=== PATIENT | male | born 1980 | race Caucasian/White ===

== ENCOUNTER 2017-02-08 16:02 | Emergency (ER) | payer SELFPAY ==
[2017-02-08 16:14] VITALS: BP 132/86
--- NOTE | 2017-02-08 17:10 | EDM.PDOC ---
ED HPI GENERAL MEDICAL PROBLEM - General Chief Complaint: General Stated Complaint: CAME IN CONTACT WITH RAT URINE/SOB Time Seen by Provider: 02/08/17 16:59 Source of Information: Reports: Patient History Limitations: Reports: No limitations - History of Present Illness INITIAL COMMENTS - FREE TEXT/NARRATIVE: Patient presents for evaluation and treatment of a sore throat, headaches and diarrhea. Patient reports that he's had symptoms for last 2 or 3 days. Current symptoms include a nonproductive cough, sore throat, headache, body aches, stomach pain, diarrhea and nausea. He states he's had 3 episodes of diarrhea today. Has not noticed blood in his stool. Patient describes his throat discomfort as a scratchy feeling or "fluid in his throat " Patient denies any fevers, vomiting, ear aches or pains, sinus pain or pressure or any urinary symptoms. Patient reports this past weekend he was cleaning out the RV. States that he was vacuuming with a shop vac and some dust was blowing in his face. he was vacuuming up rat and mice urine and feces. He states that he was googling his symptoms and his quite concerned he is hantavirus. Patient denies any recent travel. Patient denies any contacts. Patient smokes about half-pack to pack a day. Throat Pain Score (Numeric/FACES): 7 - Related Data Allergies Allergy/AdvReac Type Severity Reaction Status Date / Time No Known Allergies Allergy Verified 02/08/17 16:14 Home Meds: Home Meds . [No Known Home Meds] 02/08/17 [History] Past Medical History - Past Health History Medical/Surgical History: Denies Medical/Surgical History Social & Family History - Tobacco Use Smoking Status *Q: Current Every Day Smoker Years of Tobacco use: 10 Packs/Tins Daily: 1 - Caffeine Use Caffeine Use: Reports: Coffee, Soda - Recreational Drug Use Recreational Drug Use: No ED ROS GENERAL - Review of Systems Review Of Systems: See Below Constitutional: Reports: other (body aches). Denies: fever HEENT: Reports: Throat pain. Denies: Ear pain Respiratory: Reports: Shortness of Breath GI/Abdominal: Reports: Abdominal pain, Diarrhea (3 episodes of loose stool today ), Nausea. Denies: Hematochezia, Melena, Vomiting Neurological: Reports: Headache ED EXAM, GENERAL - Physical Exam Exam: See Below Exam Limited By: No limitations General Appearance: alert, WD/WN, no apparent distress Ears: normal external exam, normal canal, hearing grossly normal, normal TMs Nose: normal inspection Throat/Mouth: Normal inspection, Normal lips, Normal voice, No airway compromise Neck: normal inspection Respiratory/Chest: no respiratory distress, lungs clear, normal breath sounds Cardiovascular: normal peripheral pulses, regular rate, rhythm, no murmur GI/Abdominal: normal bowel sounds, soft, non tender Neurological: alert, oriented, normal cognition Psychiatric: normal affect, normal mood Skin Exam: Warm, Dry, Normal color Course - Vital Signs Last Recorded V/S: Last Vital Signs Temp 37.0 C 02/08/17 16:09 Pulse 89 02/08/17 16:09 Resp 16 02/08/17 16:09 BP 132/86 02/08/17 16:09 Pulse Ox 100 02/08/17 16:09 - Orders/Labs/Meds Orders: Active Orders 24 hr Category Date Time Status Chest 2V [CR] Stat Exams 02/08/17 16:59 Taken Labs: Laboratory Tests 02/08/17 02/08/17 Range/Units 16:59 16:59 WBC 10.77 H (4.23-9.07) K/mm3 RBC 4.74 (4.63-6.08) M/mm3 Hgb 15.5 (13.7-17.5) gm/L Hct 45.2 (40.1-51.0) % MCV 95.4 H (79.0-92.2) fl MCH 32.7 H (25.7-32.2) pg MCHC 34.3 (32.2-35.5) g/dl RDW Std Deviation 43.2 (35.1-43.9) fL Plt Count 261 (163-337) K/mm3 MPV 10.0 (9.4-12.3) fl Neut % (Auto) 49.5 (34.0-67.9) % Lymph % (Auto) 38.1 (21.8-53.1) % Phillips % (Auto) 9.9 (5.3-12.2) % Eos % (Auto) 1.9 (0.8-7.0) Baso % (Auto) 0.3 (0.1-1.2) % Neut # (Auto) 5.33 (1.78-5.38) K/mm3 Lymph # (Auto) 4.10 H (1.32-3.57) K/mm3 Phillips # (Auto) 1.07 H (0.30-0.82) K/mm3 Eos # (Auto) 0.21 (0.04-0.54) K/mm3 Baso # (Auto) 0.03 (0.01-0.08) K/mm3 Sodium 140 (136-145) mEq/L Potassium 3.9 (3.5-5.1) mEq/L Chloride 103 (98-107) mEq/L Carbon Dioxide 26 (21-32) mEq/L Anion Gap 14.9 (5-15) BUN 23 H (7-18) mg/dL Creatinine 1.0 (0.7-1.3) mg/dL Est Cr Clr Drug Dosing 86.81 mL/min Estimated GFR (MDRD) > 60 (>60) mL/min BUN/Creatinine Ratio 23.0 H (14-18) Glucose 102 (74-106) mg/dL Calcium 9.1 (8.5-10.1) mg/dL Total Bilirubin 1.0 (0.2-1.0) mg/dL AST 19 (15-37) U/L ALT 21 (16-63) U/L Alkaline Phosphatase 112 (46-116) U/L C-Reactive Protein < 0.2 (<1.0) mg/dL Total Protein 7.3 (6.4-8.2) g/dl Albumin 3.9 (3.4-5.0) g/dl Globulin 3.4 gm/dL Albumin/Globulin Ratio 1.2 (1-2) - Radiology Interpretation Free Text/Narrative:: Chest xray shows no acute intrathoracic process. - Re-Assessments/Exams Free Text/Narrative Re-Assessment/Exam: 02/08/17 19:03 Labs have returned. White blood cell count is mildly elevated 10.77, hgb is 15.5 and platelets are 261. Sodium is 140, potassium 3.9 chloride is 103. Anion gap is 14.9. Glucose is 102. AST is 19, ALT is 21 and alkaline phosphatase is 112. CRP is normal less than 0.2. I reviewed the lab and chest x-ray results with the patient. It is unlikely that he has hanta virus, however, it is possible that he is still in a incubation period. He is not showing any signs of hantavirus such as having elevated liver enzymes or thrombocytopenia. I Feel that it is unlikely he has hantavirus and more likely he has a common virus causing a viral pharyngitis. I encouraged him to continue to monitor his symptoms and return should his symptoms change or worsen. There is medication for hantavirus only symptomatic treatment so no antibiotics are indicated. Will discharge home. Discharge instructions as documented. Departure - Departure Time of Disposition: 19:19 Disposition: Home, Self-Care 01 Condition: good Clinical Impression: Pharyngitis Referrals: PCP,None [Primary Care Provider] - Forms: ED Department Discharge Additional Instructions: Monitor your symptoms. Please return to the ER should your symptoms change or worsen. - My Orders Last 24 Hours: My Active Orders 02/08/17 16:59 Chest 2V [CR] Stat - Assessment/Plan Last 24 Hours: My Active Orders 02/08/17 16:59 Chest 2V [CR] Stat
--- NOTE | 2017-02-09 11:45 | CR ---
Chest: Two views of the chest were obtained. Comparison: No previous study. Heart size and mediastinum are normal. Lungs are clear. Bony structures are unremarkable. Impression: 1. Nothing acute is identified on two-view chest x-ray. Diagnostic code #1
== END 2017-02-08 19:20 | disposition home or self-care (01) ==
LOC: JD.ED 16:02
DX: J02.9 Acute pharyngitis, unspecified (principal); F17.210 Nicotine dependence, cigarettes, uncomplicated
CPT/HCPCS: 36415; 71020; 71020-26; 80053; 85025; 86140; 99282; 99285

== ENCOUNTER 2018-06-13 07:01 | Emergency (ER) | payer SELFPAY ==
[2018-06-13 07:14] VITALS: BP 120/82
[2018-06-13] MEDS ORDERED: Sodium Chloride 0.9% 1,000 ML IV SCH (07:30)
[2018-06-13] MEDS ORDERED: Sodium Chloride 0.9% 10 ML Syringe FLUSH PRN (07:31)
--- NOTE | 2018-06-13 07:57 | EDM.PDOC ---
ED HPI GENERAL MEDICAL PROBLEM - General Chief Complaint: Abdominal Pain Stated Complaint: DIARRHEA X 15 DAYS Time Seen by Provider: 06/13/18 07:21 Source of Information: Reports: Patient, RN Notes Reviewed - History of Present Illness INITIAL COMMENTS - FREE TEXT/NARRATIVE: 38-year-old male comes in with concerns about diarrhea that started over 2 weeks ago, not going away. He states just drinking coffee this morning triggered about 7 episodes of watery diarrhea. Eating is worse with diarrhea very quickly after even trying to eat small amounts of food. Occasional mild abdominal cramping but no major abdominal pain. No vomiting. No fever or chills. No one else at home has been ill. He also is concerned about right low back pain that is been off and on for many months but now becoming more persistent worse with motion. Not radiates down the leg. He does do a lot of lifting with his work. Family wants me to look at his foot and ankle also. He twisted his right ankle about 4 days ago with pain swelling lateral aspect of foot and ankle. Right Lower Back Pain Score (Numeric/FACES): 9 - Related Data Allergies Allergy/AdvReac Type Severity Reaction Status Date / Time No Known Allergies Allergy Verified 02/08/17 16:14 Home Meds: Home Meds Ciprofloxacin HCl [Cipro] 500 mg PO Q12HR #10 tablet 06/13/18 [Rx] Past Medical History - Past Health History Medical/Surgical History: Denies Medical/Surgical History Gastrointestinal History: Reports: GERD - Past Surgical History Other Male Surgeries/Procedures: hypospadis at Social & Family History - Tobacco Use Smoking Status *Q: Current Every Day Smoker Years of Tobacco use: 18 Packs/Tins Daily: 0.5 Used Tobacco, but Quit: No - Caffeine Use Caffeine Use: Reports: Coffee, Soda, Tea - Recreational Drug Use Recreational Drug Use: No ED ROS GENERAL - Review of Systems Review Of Systems: See Below Constitutional: Denies: Fever, Chills, Diaphoresis HEENT: Denies: Throat Pain Respiratory: Denies: Shortness of Breath Cardiovascular: Denies: Chest Pain GI/Abdominal: Reports: Abdominal Pain (Occasional generalized cramps), Diarrhea , Nausea. Denies: Hematochezia (Frequent watery), Vomiting (Occasional, gone) : Reports: No Symptoms Musculoskeletal: Reports: Back Pain. Denies: Leg Pain (Right low back), Foot Pain, Joint Pain Skin: Reports: No Symptoms Neurological: Reports: No Symptoms ED EXAM, GI/ABD - Physical Exam Exam: See Below General Appearance: Alert, No Apparent Distress Eyes: Bilateral: Normal Appearance Throat/Mouth: Normal Inspection Head: Atraumatic. No: Facial Swelling Neck: Supple, Full Range of Motion Respiratory/Chest: No Respiratory Distress, Lungs Clear, Normal Breath Sounds GI/Abdominal Exam: Soft, Non-Tender. No: Guarding, Rebound Back Exam: CVA Tenderness (R) (Mild), Other (Minimal tenderness right low back, back otherwise nontender). No: CVA Tenderness (L) Extremities: Joint Swelling (There is very mild swelling below the lateral ankle mild to moderate tenderness proximal fifth metatarsal area of right foot. Slight bruising present.) Neurological: Alert, Oriented, No Motor/Sensory Deficits Skin Exam: Warm, Dry, Normal Color Course - Vital Signs Last Recorded V/S: Last Vital Signs Temp 98.4 F 06/13/18 07:08 Pulse 78 06/13/18 07:08 Resp 20 06/13/18 07:08 BP 120/82 06/13/18 07:08 Pulse Ox 99 06/13/18 07:08 - Orders/Labs/Meds Orders: Active Orders 24 hr Category Date Time Status Peripheral IV Care [RC] . DIRECTED Care 06/13/18 07:31 Active CULTURE STOOL + SHIGATOX [RM] Stat Lab 06/13/18 08:58 Ordered Sodium Chloride 0.9% [Normal Saline] 1,000 ml Med 06/13/18 07:30 Active IV ONETIME Sodium Chloride 0.9% [Saline Flush] Med 06/13/18 07:31 Active 10 ml FLUSH ASDIRECTED PRN Peripheral IV Insertion Adult [OM.PC] Stat Oth 06/13/18 07:30 Ordered Medication Orders Sodium Chloride (Normal Saline) 1,000 mls @ 999 mls/hr IV ONETIME [facility] Last Admin: 06/13/18 07:45 Dose: 999 mls/hr Sodium Chloride (Saline Flush) 10 ml FLUSH ASDIRECTED PRN PRN Reason: Keep Vein Open Last Admin: 06/13/18 07:40 Dose: 10 ml Labs: Laboratory Tests 06/13/18 06/13/18 06/13/18 Range/Units 07:40 07:40 09:20 WBC 7.79 (4.23-9.07) K/mm3 RBC 5.06 (4.63-6.08) M/mm3 Hgb 16.6 (13.7-17.5) gm/L Hct 47.3 (40.1-51.0) % MCV 93.5 H (79.0-92.2) fl MCH 32.8 H (25.7-32.2) pg MCHC 35.1 (32.2-35.5) g/dl RDW Std Deviation 42.7 (35.1-43.9) fL Plt Count 282 (163-337) K/mm3 MPV 10.0 (9.4-12.3) fl Neut % (Auto) 47.1 (34.0-67.9) % Lymph % (Auto) 36.3 (21.8-53.1) % [place] % (Auto) 11.9 (5.3-12.2) % Eos % (Auto) 3.6 (0.8-7.0) Baso % (Auto) 0.8 (0.1-1.2) % Neut # (Auto) 3.67 (1.78-5.38) K/mm3 Lymph # (Auto) 2.83 (1.32-3.57) K/mm3 [place] # (Auto) 0.93 H (0.30-0.82) K/mm3 Eos # (Auto) 0.28 (0.04-0.54) K/mm3 Baso # (Auto) 0.06 (0.01-0.08) K/mm3 Sodium 138 (136-145) mEq/L Potassium 4.2 (3.5-5.1) mEq/L Chloride 104 (98-107) mEq/L Carbon Dioxide 22 (21-32) mEq/L Anion Gap 16.2 H (5-15) BUN 16 (7-18) mg/dL Creatinine 0.9 (0.7-1.3) mg/dL Est Cr Clr Drug Dosing 101.92 mL/min Estimated GFR (MDRD) > 60 (>60) mL/min BUN/Creatinine Ratio 17.8 (14-18) Glucose 98 (74-106) mg/dL Calcium 8.8 (8.5-10.1) mg/dL Total Bilirubin 1.3 H (0.2-1.0) mg/dL AST 21 (15-37) U/L ALT 21 (16-63) U/L Alkaline Phosphatase 102 (46-116) U/L Total Protein 7.8 (6.4-8.2) g/dl Albumin 4.3 (3.4-5.0) g/dl Globulin 3.5 gm/dL Albumin/Globulin Ratio 1.2 (1-2) Urine Color Yellow (Yellow) Urine Appearance Clear (Clear) Urine pH 6.0 (5.0-8.0) Ur Specific Bradshaw 1.020 (1.005-1.030) Urine Protein Negative (Negative) Urine Glucose (UA) Negative (Negative) Urine Ketones Negative (Negative) Urine Occult Blood Negative (Negative) Urine Nitrite Negative (Negative) Urine Bilirubin Negative (Negative) Urine Urobilinogen 0.2 (0.2-1.0) Ur Leukocyte Esterase Negative (Negative) Urine RBC Not seen (0-5) /hpf Urine WBC 0-5 (0-5) /hpf Ur Epithelial Cells Not seen (0-5) /hpf Urine Bacteria Not seen (FEW) /hpf Urine Mucus Few (FEW) /hpf Meds: Medications Generic Name Dose Route Start Last Admin Trade Name Freq PRN Reason Stop Dose Admin Sodium Chloride 1,000 mls @ 999 mls/hr 06/13/18 07:30 06/13/18 07:45 Normal Saline IV 999 mls/hr ONETIME [facility] Administration Sodium Chloride 10 ml 06/13/18 07:31 06/13/18 07:40 Saline Flush FLUSH 10 ml ASDIRECTED PRN Administration Keep Vein Open - Re-Assessments/Exams Free Text/Narrative Re-Assessment/Exam: 06/13/18 11:11 X-rays of the foot are negative for fracture, labs are relatively good. UA was normal. He did provider stool sample for culture. Due to severity of diarrhea and not getting better I am going to start him on a course of Cipro 500 mg twice daily for 5 days. Probiotic 2-3 times daily. Discharge instructions as documented. Departure - Departure Time of Disposition: 10:34 Disposition: Home, Self-Care 01 Condition: Fair Clinical Impression: Diarrhea Qualifiers: Diarrhea type: presumed infectious Qualified Code(s): R19.7 - Diarrhea, unspecified Back pain Qualifiers: Back pain location: low back pain Chronicity: acute Back pain laterality: right Sciatica presence: without sciatica Qualified Code(s): M54.5 - Low back pain - Discharge Information Prescriptions: Ciprofloxacin HCl [Cipro] 500 mg PO Q12HR #10 tablet Instructions: Back Pain, Adult, [id number], Diarrhea, Adult, [id number] Referrals: PCP,None [Primary Care Provider] - Forms: ED Department Discharge Additional Instructions: Clear liquids today, then very bland diet as tolerated as discussed, probiotic 2 -3 times daily for at least 1 week, Cipro antibiotic 500 mg twice daily for 5 days. Follow-up clinic if not much better within 3-5 days as expected. Call [phone] for appointment. Alternate ice and heat to low back as needed. You may take tylenol or ibuprofen up to 3 times daily or even alternate Tylenol and ibuprofen for severe back pain as needed. - My Orders Last 24 Hours: My Active Orders 06/13/18 07:30 Sodium Chloride 0.9% [Normal Saline] 1,000 ml IV ONETIME Peripheral IV Insertion Adult [OM.PC] Stat 06/13/18 07:31 Peripheral IV Care [RC] . DIRECTED Sodium Chloride 0.9% [Saline Flush] 10 ml FLUSH ASDIRECTED PRN 06/13/18 08:58 CULTURE STOOL + SHIGATOX [RM] Stat - Assessment/Plan Last 24 Hours: My Active Orders 06/13/18 07:30 Sodium Chloride 0.9% [Normal Saline] 1,000 ml IV ONETIME Peripheral IV Insertion Adult [OM.PC] Stat 06/13/18 07:31 Peripheral IV Care [RC] . DIRECTED Sodium Chloride 0.9% [Saline Flush] 10 ml FLUSH ASDIRECTED PRN 06/13/18 08:58 CULTURE STOOL + SHIGATOX [RM] Stat
== END 2018-06-13 10:44 | disposition home or self-care (01) ==
LOC: JD.ED 07:01
DX: R19.7 Diarrhea, unspecified (principal); M54.5 Low back pain; F17.210 Nicotine dependence, cigarettes, uncomplicated
CPT/HCPCS: 36415; 80053; 81001; 85025; 87046; 96360; 99284; J7040; J7050; 99283

== ENCOUNTER 2018-11-01 08:40 | Emergency (ER) | payer SELFPAY ==
[2018-11-01 08:58] VITALS: BP 115/83
[2018-11-01] MEDS ORDERED: Sodium Chloride 0.9% 1,000 ML IV STA (09:06)
[2018-11-01] MEDS ORDERED: Ondansetron 4 MG/2 ML SDV IVPUSH ONE (09:06)
[2018-11-01] MEDS ORDERED: Sodium Chloride 0.9% 10 ML Syringe FLUSH PRN (09:06)
[2018-11-01] MEDS ORDERED: HYDROmorphone 1 MG/ML Syringe IVPUSH ONE (09:08)
[2018-11-01] MEDS ORDERED: Iopamidol 612 MG/ML 100 ML Bottle IVPUSH ONE (09:18)
[2018-11-01] MEDS ORDERED: Diatrizoate Meglumine/Diatrizoate Sodium 37% 120 ML Bottle PO ONE (09:18)
[2018-11-01] MEDS: Sodium Chloride 0.9% 10 ML Syringe FLUSH PRN ×2 (09:20→10:50)
--- NOTE | 2018-11-01 11:25 | CT ---
CT abdomen and pelvis Technique: Multiple axial sections were obtained from above the dome of the diaphragm inferiorly through the pubic symphysis. Intravenous and oral contrast has been given. Delayed images were obtained through the bladder. Comparison: No prior abdominal imaging. Findings: Small portion of the visualized lung bases appears clear. Liver shows no focal parenchymal abnormality. Spleen appears within normal limits. Adrenal glands show no nodule. Kidneys show no hydronephrosis or mass. Pancreas is within normal limits. Gallbladder contains no calcified gallstones. Aorta shows no aneurysm. No retroperitoneal adenopathy or mesenteric abnormalities are seen. Slightly prominent small bowel loops are seen proximally believed to represent hypertonic effect of contrast. Several loops of slightly thickened small bowel are seen within the jejunum possibly due to lack of distention if patient has no symptoms of enteritis. No pelvic mass or adenopathy is seen. Delayed images show contrast within nondilated distal ureters. Contrast is also noted within the bladder. Appendix is seen and appears normal in size. No free fluid or inflammatory change is seen. Bone window settings were reviewed which appear within normal limits for the patient's age. Impression: 1. Several loops of jejunum showing wall thickening most likely representing lack of distention if patient has no symptoms of enteritis. 2. CT study of the abdomen and pelvis is otherwise unremarkable. Diagnostic code #2
[2018-11-01] MEDS ORDERED: fentaNYL 100 MCG/2 ML SDV IVPUSH ONE (12:18)
--- NOTE | 2018-11-01 12:43 | EDM.PDOC ---
ED HPI GENERAL MEDICAL PROBLEM - General Chief Complaint: Back Pain or Injury Stated Complaint: BACK PAIN Time Seen by Provider: 11/01/18 08:55 Source of Information: Reports: Patient, Family History Limitations: Reports: No Limitations - History of Present Illness INITIAL COMMENTS - FREE TEXT/NARRATIVE: The patient presents with right low back pain. This has been an ongoing problem for the past few months. He initially had diarrhea. He was seen here and given cipro but all his cultures were negative. That did help some. He also has right low back pain. The pain seems to come from the back and goes to the right abdomen. He says food does affect the pain. He says about 1/2 hour after eating he will get more pain in his back that radiates to his abdomen. He is concerned this could be his gallbladder but he does not really have pain in the RLQ. 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 He also has diarrhea times. He will have chills at time but no fever. He has no chest pain or cough. He is nauseated at times. Onset: Gradual Duration: Week(s): Location: Reports: Abdomen, Back Quality: Reports: Sharp Severity: Severe Improves with: Reports: None Worsens with: Reports: None Associated Symptoms: Reports: Fever/Chills, Nausea/Vomiting. Denies: Chest Pain , Cough, Headaches, Shortness of Breath Right Lower Back Pain Score (Numeric/FACES): 6 - Related Data Allergies Allergy/AdvReac Type Severity Reaction Status Date / Time No Known Allergies Allergy Verified 11/01/18 08:58 Home Meds: Home Meds Amoxicillin/Clavulanate K [Augmentin 875-125 MG] 1 tab PO BID #20 tablet [Rx] Cyclobenzaprine [Flexeril] 10 mg PO TID PRN #20 tab 11/01/18 [Rx] Hydrocodone/Acetaminophen [Hydrocodon-Acetaminophen 5-325] 1 - 2 each PO Q6HR PRN #20 tablet 11/01/18 [Rx] Past Medical History - Past Health History Medical/Surgical History: Denies Medical/Surgical History Gastrointestinal History: Reports: GERD - Past Surgical History Other Male Surgeries/Procedures: hypospadis at Social & Family History - Tobacco Use Smoking Status *Q: Current Every Day Smoker Years of Tobacco use: 6 Packs/Tins Daily: 0.5 - Caffeine Use Caffeine Use: Reports: Coffee, Soda, Tea - Recreational Drug Use Recreational Drug Use: No ED ROS GENERAL - Review of Systems Review Of Systems: See Below Constitutional: Reports: Chills. Denies: Fever HEENT: Reports: No Symptoms Respiratory: Reports: No Symptoms Cardiovascular: Reports: No Symptoms Endocrine: Reports: No Symptoms GI/Abdominal: Reports: Abdominal Pain, Diarrhea, Nausea. Denies: Vomiting : Reports: No Symptoms Musculoskeletal: Reports: Back Pain ED EXAM,LOWER BACK PAIN/INJURY - Physical Exam Exam: See Below Exam Limited By: No Limitations General Appearance: Alert, No Apparent Distress Ears: Normal External Exam Nose: Normal Inspection Head: Atraumatic, Normocephalic Neck: Normal Inspection Respiratory/Chest: No Respiratory Distress, Lungs Clear, Normal Breath Sounds Cardiovascular: Regular Rate, Rhythm, No Edema, No Murmur GI/Abdominal: Soft, Non-Tender, No Organomegaly, No Mass Back Exam: Other (Right lower abdominal pain) Extremities: Normal Inspection Neurological: Alert, No Motor/Sensory Deficits, Oriented x 3 Course - Vital Signs Last Recorded V/S: Last Vital Signs Temp 97.3 F 11/01/18 08:50 Pulse 85 11/01/18 08:50 Resp 16 11/01/18 08:50 BP 115/83 11/01/18 08:50 Pulse Ox 98 11/01/18 08:50 - Orders/Labs/Meds Orders: Active Orders 24 hr Category Date Time Status Peripheral IV Care [RC] . DIRECTED Care 11/01/18 09:06 Active Sodium Chloride 0.9% [Saline Flush] Med 11/01/18 09:06 Active 10 ml FLUSH ASDIRECTED PRN Sodium Chloride 0.9% [Saline Flush] Med 11/01/18 09:18 Active 10 ml FLUSH ONETIME PRN ED Antiemetic Medication Reflex [OM.PC] Stat Oth 11/01/18 09:06 Ordered Peripheral IV Insertion Adult [OM.PC] Stat Oth 11/01/18 09:06 Ordered Medication Orders Sodium Chloride (Saline Flush) 10 ml FLUSH ASDIRECTED PRN PRN Reason: Keep Vein Open Last Admin: 11/01/18 09:20 Dose: 10 ml Sodium Chloride (Saline Flush) 10 ml FLUSH ONETIME PRN PRN Reason: IV FLUSH Last Admin: 11/01/18 10:50 Dose: 10 ml Admin: 11/01/18 09:20 Dose: 10 ml Labs: Laboratory Tests 11/01/18 11/01/18 11/01/18 Range/Units 09:20 09:20 10:13 WBC 7.79 (4.23-9.07) K/mm3 RBC 5.26 (4.63-6.08) M/mm3 Hgb 17.0 (13.7-17.5) gm/L Hct 50.4 (40.1-51.0) % MCV 95.8 H (79.0-92.2) fl MCH 32.3 H (25.7-32.2) pg MCHC 33.7 (32.2-35.5) g/dl RDW Std Deviation 43.1 (35.1-43.9) fL Plt Count 297 (163-337) K/mm3 MPV 10.1 (9.4-12.3) fl Neut % (Auto) 41.3 (34.0-67.9) % Lymph % (Auto) 44.0 (21.8-53.1) % [place] % (Auto) 10.5 (5.3-12.2) % Eos % (Auto) 3.3 (0.8-7.0) Baso % (Auto) 0.5 (0.1-1.2) % Neut # (Auto) 3.21 (1.78-5.38) K/mm3 Lymph # (Auto) 3.43 (1.32-3.57) K/mm3 [place] # (Auto) 0.82 (0.30-0.82) K/mm3 Eos # (Auto) 0.26 (0.04-0.54) K/mm3 Baso # (Auto) 0.04 (0.01-0.08) K/mm3 Sodium 142 (136-145) mEq/L Potassium 4.0 (3.5-5.1) mEq/L Chloride 104 (98-107) mEq/L Carbon Dioxide 27 (21-32) mEq/L Anion Gap 15.0 (5-15) BUN 14 (7-18) mg/dL Creatinine 1.0 (0.7-1.3) mg/dL Est Cr Clr Drug Dosing 85.17 mL/min Estimated GFR (MDRD) > 60 (>60) mL/min BUN/Creatinine Ratio 14.0 (14-18) Glucose 102 (74-106) mg/dL Calcium 9.3 (8.5-10.1) mg/dL Total Bilirubin 1.2 H (0.2-1.0) mg/dL AST 21 (15-37) U/L ALT 27 (16-63) U/L Alkaline Phosphatase 102 (46-116) U/L Total Protein 8.1 (6.4-8.2) g/dl Albumin 4.3 (3.4-5.0) g/dl Globulin 3.8 gm/dL Albumin/Globulin Ratio 1.1 (1-2) Lipase 104 (73-393) U/L Urine Color Yellow (Yellow) Urine Appearance Clear (Clear) Urine pH 7.5 (5.0-8.0) Ur Specific [place] 1.020 (1.005-1.030) Urine Protein Negative (Negative) Urine Glucose (UA) Negative (Negative) Urine Ketones Negative (Negative) Urine Occult Blood Negative (Negative) Urine Nitrite Negative (Negative) Urine Bilirubin Negative (Negative) Urine Urobilinogen 0.2 (0.2-1.0) Ur Leukocyte Esterase Negative (Negative) Urine RBC 0-5 (0-5) /hpf Urine WBC 0-5 (0-5) /hpf Ur Epithelial Cells Not seen (0-5) /hpf Urine Bacteria Rare (FEW) /hpf Urine Mucus Few (FEW) /hpf Meds: Medications Generic Name Dose Route Start Last Admin Trade Name Cordell PRN Reason Stop Dose Admin Sodium Chloride 10 ml 11/01/18 09:06 11/01/18 09:20 Saline Flush FLUSH 10 ml ASDIRECTED PRN Administration Keep Vein Open Sodium Chloride 10 ml 11/01/18 09:18 11/01/18 10:50 Saline Flush FLUSH 10 ml ONETIME PRN Administration IV FLUSH Discontinued Medications Generic Name Dose Route Start Last Admin Trade Name Cordell PRN Reason Stop Dose Admin Diatrizoate Meglum/Diatrizoate Sod 120 ml 11/01/18 09:18 11/01/18 10:50 Gastrografin 37% PO 11/01/18 09:19 90 ml ONETIME ONE Administration Fentanyl 100 mcg 11/01/18 12:18 11/01/18 12:28 Sublimaze IVPUSH 11/01/18 12:19 100 mcg ONETIME ONE Administration Hydromorphone HCl 1 mg 11/01/18 09:08 11/01/18 09:20 Dilaudid IVPUSH 11/01/18 09:09 1 mg ONETIME ONE Administration Sodium Chloride 1,000 mls @ 1,000 mls/hr 11/01/18 09:06 11/01/18 09:21 Normal Saline IV 11/01/18 10:05 1,000 mls/hr .BOLUS STA Administration Iopamidol 100 ml 11/01/18 09:18 11/01/18 10:49 Isovue-300 (61%) IVPUSH 11/01/18 09:19 80 ml ONETIME ONE Administration Ondansetron HCl 4 mg 11/01/18 09:06 11/01/18 09:20 Zofran IVPUSH 11/01/18 09:07 4 mg ONETIME ONE Administration - Re-Assessments/Exams Free Text/Narrative Re-Assessment/Exam: 11/01/18 13:07 I ordered an IV NS 1L bolus, zofran 4mg IV, dilaudid 1mg IV, labs, UA and a CT of his abdomen and pelvis. His CBC and CMP look good. His UA shows no UTI. His CT shows several loops of jejunum showing wall thickening most likely representing lack of distention if patient has no symptoms of enteritis. He does have some diarrhea. This could be the cause. He is still concerned that this may be his gallbladder. I explained the gallbladder is higher. He is frustrated. We talked for awhile. I explained this is the begining of the work up. I will start him on an antibiotic and have him follow up with one of our providers. If that does not work then I think he may need a HIDA scan. If that is negative, he may need an MRI of his back. Departure - Departure Time of Disposition: 13:15 Disposition: Home, Self-Care 01 Condition: Good Clinical Impression: Enteritis Back pain Qualifiers: Back pain location: low back pain Chronicity: acute Back pain laterality: right Sciatica presence: without sciatica Qualified Code(s): M54.5 - Low back pain Diarrhea Qualifiers: Diarrhea type: presumed infectious Qualified Code(s): R19.7 - Diarrhea, unspecified - Discharge Information *PRESCRIPTION DRUG MONITORING PROGRAM REVIEWED*: No *COPY OF PRESCRIPTION DRUG MONITORING REPORT IN PATIENT TANNER: No Prescriptions: Hydrocodone/Acetaminophen [Hydrocodon-Acetaminophen 5-325] 1 - 2 each PO Q6HR PRN #20 tablet PRN Reason: Pain Amoxicillin/Clavulanate K [Augmentin 875-125 MG] 1 tab PO BID #20 tablet Cyclobenzaprine [Flexeril] 10 mg PO TID PRN #20 tab PRN Reason: Pain Referrals: PCP,None [Primary Care Provider] - Lisa Hill PA-C [[facility]] - 1 Week Forms: ED Department Discharge Additional Instructions: Take the augmentin 2 times per day for 10 days. Take the flexeril and hydrocodone as needed for pain. Please return if you are worse. Follow up with Dahlia Hill. - My Orders Last 24 Hours: My Active Orders 11/01/18 09:06 Peripheral IV Care [RC] . DIRECTED Sodium Chloride 0.9% [Saline Flush] 10 ml FLUSH ASDIRECTED PRN ED Antiemetic Medication Reflex [OM.PC] Stat Peripheral IV Insertion Adult [OM.PC] Stat 11/01/18 09:18 Sodium Chloride 0.9% [Saline Flush] 10 ml FLUSH ONETIME PRN - Assessment/Plan Last 24 Hours: My Active Orders 11/01/18 09:06 Peripheral IV Care [RC] . DIRECTED Sodium Chloride 0.9% [Saline Flush] 10 ml FLUSH ASDIRECTED PRN ED Antiemetic Medication Reflex [OM.PC] Stat Peripheral IV Insertion Adult [OM.PC] Stat 11/01/18 09:18 Sodium Chloride 0.9% [Saline Flush] 10 ml FLUSH ONETIME PRN
== END 2018-11-01 13:28 | disposition home or self-care (01) ==
LOC: JD.ED 08:40
DX: K52.9 Noninfective gastroenteritis and colitis, unspecified (principal); M54.5 Low back pain; F17.210 Nicotine dependence, cigarettes, uncomplicated
CPT/HCPCS: 36415; 74177; 80053; 81001; 83690; 85025; 96361; 96374; 96375; 99284; J1170; J2405; J3010; J7040; Q9963; Q9967

== ENCOUNTER 2020-08-01 20:26 | Emergency (ER) | payer BC ==
[2020-08-01 20:35] VITALS: BP 118/89; PULSE 84
== END 2020-08-01 21:50 | disposition left against medical advice (07) ==
LOC: JD.ED 20:26
DX: Z53.21 Procedure and treatment not carried out due to patient leaving prior to being seen by health care provider (principal)

== ENCOUNTER 2020-08-01 22:21 | Emergency (ER) | payer BC ==
[2020-08-01 22:41] VITALS: BP 128/91; PULSE 96
--- NOTE | 2020-08-01 22:47 | EDM.PDOC ---
ED HPI GENERAL MEDICAL PROBLEM <Félix Regan - Last Filed: 08/02/20 00:51> - General Source of Information: Reports: Patient History Limitations: Reports: No Limitations Head Pain Score (Numeric/FACES): 10 <Alvin Douglas - Last Filed: 08/03/20 10:20> - General Chief Complaint: Head Injury Stated Complaint: INTOXICATED AND HEAD LACERATION Time Seen by Provider: 08/01/20 22:40 - History of Present Illness INITIAL COMMENTS - FREE TEXT/NARRATIVE: This is a 40-year-old male. He was in the ER previously and apparently walked out because he was angry. He is now back because his called the police stating that he is not acting normal. Apparently he fell down about 17 flights of steps at home. He has a cut to his right parietal scalp area. He complains of headache as well as neck pain. He is in a c-collar at this time. Patient is restless complaining of headache and neck pain. He also has been drinking alcohol this evening. He denies any extremity injuries and moves his arms and legs with no difficulty. The adds to the story that he apparently was walking backwards and they were having a verbal argument and he fell backwards down some steps and afterwards he just has not been acting normal. He complains of severe neck pain and he comes to the ER for evaluation. And he walked out of the ER she had called the police who found him and coaxed him back into the ER and I have been able to talk to him and calm him down and get CT scans on him. I did speak to the regarding the CT scan results and his need to see a neurosurgeon. (Alvin Douglas) - Related Data Allergies Allergy/AdvReac Type Severity Reaction Status Date / Time No Known Allergies Allergy Verified 08/01/20 22:41 Home Meds: Home Meds Amoxicillin/Clavulanate K [Augmentin 875-125 MG] 1 tab PO BID #20 tablet 11/01/18 [Rx] Cyclobenzaprine [Flexeril] 10 mg PO TID PRN #20 tab 11/01/18 [Rx] Hydrocodone/Acetaminophen [Hydrocodone-Acetamin 5-325 mg] 1 - 2 each PO Q6HR PRN #20 tablet 11/01/18 [Rx] Past Medical History - Past Health History Medical/Surgical History: Denies Medical/Surgical History Gastrointestinal History: Reports: GERD - Past Surgical History Other Male Surgeries/Procedures: hypospadis at <[place] Jamison - Last Filed: 08/03/20 10:20> Social & Family History - Caffeine Use Caffeine Use: Reports: Coffee, Soda, Tea <MisaelAlvin Jamison - Last Filed: 08/03/20 10:20> ED ROS GENERAL - Review of Systems Review Of Systems: See Below Reason Not Obtained: Difficult to obtain Constitutional: Denies: Fever, Chills HEENT: Reports: No Symptoms Respiratory: Reports: No Symptoms Cardiovascular: Reports: No Symptoms Endocrine: Reports: No Symptoms GI/Abdominal: Reports: No Symptoms : Reports: No Symptoms Musculoskeletal: Reports: Other (Neck pain) Skin: Reports: Other (Scalp laceration) Neurological: Reports: Headache Psychiatric: Reports: Anxiety, Other (Paranoid) <MisaelAlvin H - Last Filed: 08/03/20 10:20> ED EXAM, HEAD INJURY - Physical Exam Exam: See Below Exam Limited By: Intoxication General Appearance: Alert, WD/WN, Mild Distress Head: Other (To have a 6 cm laceration to the right parietal area bleeding is controlled) Nexus Criteria: Evidence of Intoxication, Altered Level of Consciousness Eyes: Bilateral Eye: Normal Inspection Ears: Normal External Exam, Normal TMs Nose: Normal Inspection Throat/Mouth: Normal Lips, Normal Voice, No Airway Compromise, Dental Decay, Other (Patient has severe advanced dental caries noted) Neck: Other (C-collar is in place) Respiratory: No Respiratory Distress, Lungs Clear, Normal Breath Sounds Cardiovascular: Regular Rate, Rhythm, No Murmur GI/Abdominal Exam: Soft Back Exam: Full Range of Motion Extremities: Normal Range of Motion, Other (Patient is moving his upper and lower extremities with no difficulty and appears somewhat restless) Neurologic: No Motor/Sensory Deficits, Alert, Other (He knows he is in the hospital he knows who his is he knows the approximate day) Skin: Normal Color, Warm/Dry - Tish Coma Score Best Eye Response ([place]): (4) Open Spontaneously Best Verbal Response ([place]): (5) Oriented Best Motor Response ([place]): (6) Obeys Commands [place] Total: 15 <Alvin Douglas Jamison - Last Filed: 08/03/20 10:20> ED LACERATION/WOUND & LAMBERTO PROC - Laceration/Wound Repair Right Side Head Lac/wound length in cm: 5 Appearance: Subcutaneous, Linear, Clean Distal NVT: Neuro & Vascular Intact Anesthetic Type: Local Local Anesthesia - Lidocaine (Xylocaine): 1% with EPI Local Anesthetic Volume: Other (8) Skin Prep: Chlorhexidine (Hibiciens), Saline Exploration/Debridement/Repair: Wound Explored, In a Bloodless Field, Explored to Base, No Foreign Material Found Closed with: Sutures Suture Size: 4-0 # of Sutures: 9 Suture Type: Prolene, Interrupted, Simple Suture Size: 4-0 # of Sutures: 4 Repaired with: Vicryl Drain Placement: No Sterile Dressing Applied: None Tetanus Status Addressed: Yes Complications: No <Félix Regan O - Last Filed: 08/02/20 00:51> Course <Alvin Douglas H - Last Filed: 08/03/20 10:20> - Vital Signs Last Recorded V/S: Last Vital Signs Temp 99.1 F 08/01/20 22:38 Pulse 96 08/01/20 22:38 Resp 20 08/01/20 22:38 BP 128/91 H 08/01/20 22:38 Pulse Ox 98 08/01/20 22:38 - Orders/Labs/Meds Labs: Laboratory Tests 08/01/20 08/01/20 08/02/20 Range/Units 23:52 23:52 00:06 WBC 9.40 H (4.23-9.07) K/mm3 RBC 4.85 (4.63-6.08) M/mm3 Hgb 15.9 (13.7-17.5) gm/dl Hct 47.7 (40.1-51.0) % MCV 98.4 H (79.0-92.2) fl MCH 32.8 H (25.7-32.2) pg MCHC 33.3 (32.2-35.5) g/dl RDW Std Deviation 44.8 H (35.1-43.9) fL Plt Count 323 (163-337) K/mm3 MPV 10.1 (9.4-12.3) fl Neut % (Auto) 65.9 (34.0-67.9) % Lymph % (Auto) 25.3 (21.8-53.1) % [place] % (Auto) 5.9 (5.3-12.2) % Eos % (Auto) 2.4 (0.8-7.0) Baso % (Auto) 0.4 (0.1-1.2) % Neut # (Auto) 6.19 H (1.78-5.38) K/mm3 Lymph # (Auto) 2.38 (1.32-3.57) K/mm3 [place] # (Auto) 0.55 (0.30-0.82) K/mm3 Eos # (Auto) 0.23 (0.04-0.54) K/mm3 Baso # (Auto) 0.04 (0.01-0.08) K/mm3 Sodium 142 (136-145) mEq/L Potassium 3.7 (3.5-5.1) mEq/L Chloride 105 (98-107) mEq/L Carbon Dioxide 23 (21-32) mEq/L Anion Gap 17.7 H (5-15) BUN 10 (7-18) mg/dL Creatinine 0.9 (0.7-1.3) mg/dL Est Cr Clr Drug Dosing 100.43 mL/min Estimated GFR (MDRD) > 60 (>60) mL/min BUN/Creatinine Ratio 11.1 L (14-18) Glucose 117 H (74-106) mg/dL Calcium 8.5 (8.5-10.1) mg/dL Total Bilirubin 0.6 (0.2-1.0) mg/dL AST 21 (15-37) U/L ALT 24 (16-63) U/L Alkaline Phosphatase 92 (46-116) U/L Total Protein 7.9 (6.4-8.2) g/dl Albumin 4.2 (3.4-5.0) g/dl Globulin 3.7 gm/dL Albumin/Globulin Ratio 1.1 (1-2) Ethyl Alcohol 0.21 (0.00) gm% SARS-CoV-2 RNA (DIONTE) Negative (NEGATIVE) Meds: Medications Discontinued Medications Generic Name Dose Route Start Last Admin Trade Name Freq PRN Reason Stop Dose Admin Acetaminophen 975 mg 08/01/20 22:49 08/01/20 22:54 Tylenol PO 08/01/20 22:50 975 mg NOW ONE Administration Acetaminophen Confirm 08/01/20 22:50 08/01/20 22:54 Tylenol Administered 08/01/20 22:51 Not Given Dose 975 mg .ROUTE .STK-MED ONE Hydromorphone HCl 0.5 mg 08/01/20 23:40 08/01/20 23:54 Dilaudid IVPUSH 08/01/20 23:41 0.5 mg ONETIME ONE Administration Hydromorphone HCl 0.5 mg 08/02/20 01:07 08/02/20 01:12 Dilaudid IVPUSH 08/02/20 01:08 0.5 mg ONETIME ONE Administration Hydromorphone HCl 0.5 mg 08/02/20 06:08 08/02/20 06:13 Dilaudid IVPUSH 08/02/20 06:09 0.5 mg ONETIME ONE Administration Hydromorphone HCl 0.5 mg 08/02/20 07:45 Dilaudid IVPUSH Q1H LINA Hydromorphone HCl 0.5 mg 08/02/20 07:37 08/02/20 08:42 Dilaudid IVPUSH 0.5 mg Q1H PRN Administration Pain (severe 7-10) Lidocaine/Epinephrine 10 ml 08/02/20 00:06 08/02/20 01:13 Xylocaine 1% With Epinephrine 1:100,000 INJECT 08/02/20 00:07 10 ml ONETIME ONE Administration Lidocaine/Epinephrine 10 ml 08/02/20 00:06 08/02/20 01:13 Xylocaine 1% With Epinephrine 1:100,000 INJECT 08/02/20 00:07 10 ml ONETIME ONE Administration Lorazepam 0.5 mg 08/01/20 23:41 08/01/20 23:54 Ativan IVPUSH 08/01/20 23:42 0.5 mg ONETIME ONE Administration Lorazepam 0.5 mg 08/02/20 00:51 08/02/20 01:12 Ativan IVPUSH 08/02/20 00:52 0.5 mg ONETIME ONE Administration - Radiology Interpretation Free Text/Narrative:: ET scan of the head did not show any acute intracranial abnormalities just a laceration in his right parietal area. CT scan of the neck does show an acute 2 fracture of the dens that is anteriorly displaced by about 2 mm. (Alvin Douglas) - Re-Assessments/Exams Free Text/Narrative Re-Assessment/Exam: 08/02/20 01:08 Spoke to the patient regarding his injuries and his need to go to [place]. We do have to wait until the morning to get an ambulance crew to take him to [place]. I did speak to Dr. Rowe [place] [facility] who accepts the patient in transport whenever we can get him there. I did speak to the as well regarding his injuries with the patient's permission. 08/02/20 04:14 Patient has been sleeping quietly and is not complaining of pain presently. 08/02/20 07:36 The patient has been complaining of some neck pain and we have been providing some Dilaudid that seems to help. We are attempting to find a ground transport to take him to [place] but [facility] has refused to take him to [place]. We cannot seem to find [place] or [facility] or any other ambulance service that is willing to transport him. We will therefore once we hear back from all the ambulance services if no one can take him by ground we will fly him to [place]. 08/02/20 07:54 We have held this patient in the ER overnight because we were given assurance that a ambulance would be found by the [facility] crew to take him to [place] especially if it was a BLS transport. As it turns out this is not the case so we are going to have to fly this patient to [place]. (Alvin Douglas) Departure <Félix Regan O - Last Filed: 08/02/20 00:51> - Departure Time of Disposition: 17:40 Condition: Fair <Alvin Douglas - Last Filed: 08/03/20 10:20> - Departure Disposition: DC/Tfer to [facility] 02 Clinical Impression: Other displaced dens fracture, initial encounter for closed fracture, Lab test negative for COVID-19 virus Scalp laceration Qualifiers: Encounter type: initial encounter Qualified Code(s): S01.01XA - Laceration without foreign body of scalp, initial encounter Closed head injury Qualifiers: Encounter type: initial encounter Qualified Code(s): S09.90XA - Unspecified injury of head, initial encounter Acute alcohol intoxication Qualifiers: Complication of substance-induced condition: uncomplicated Qualified Code(s): F10.920 - Alcohol use, unspecified with intoxication, uncomplicated - Discharge Information Sepsis Event Note (ED) - Evaluation Sepsis Screening Result: No Definite Risk <Alvin Douglas - Last Filed: 08/03/20 10:20> ED Communication - ED Communication Date/Time Date: 08/02/20 Time Called: 00:15 - Discussed Case With (1) Discussed Case With (1): Other Provider (ER physician at [facility]) Person/s Notified (1): Dr. Rowe (He accepts the patient in transport for further evaluation and treatment.) <Alvin Douglas - Last Filed: 08/03/20 10:20>
[2020-08-01] MEDS ORDERED: Acetaminophen 325 MG Tab PO ONE (22:49)
[2020-08-01] MEDS ORDERED: Acetaminophen 325 MG Tab ONE (22:50)
[2020-08-01] MEDS ORDERED: HYDROmorphone 0.5 MG/0.5 ML Syringe IVPUSH ONE (23:40)
[2020-08-01] MEDS ORDERED: LORazepam 2 MG/ML SDV IVPUSH ONE (23:41)
[2020-08-02] MEDS ORDERED: Lidocaine 1% with EPINEPHrine 1:100,000 10 ML MDV INJECT ONE (00:06)
[2020-08-02] MEDS ORDERED: LORazepam 2 MG/ML SDV IVPUSH ONE (00:51)
[2020-08-02] MEDS ORDERED: HYDROmorphone 0.5 MG/0.5 ML Syringe IVPUSH ONE ×2 (01:07→06:08)
[2020-08-02] MEDS: Lidocaine 1% with EPINEPHrine 1:100,000 10 ML MDV INJECT ONE ×2 (01:13)
[2020-08-02] MEDS ORDERED: HYDROmorphone 0.5 MG/0.5 ML Syringe IVPUSH PRN (07:37)
[2020-08-02] MEDS ORDERED: HYDROmorphone 0.5 MG/0.5 ML Syringe IVPUSH SCH (07:45)
--- NOTE | 2020-09-01 14:41 | CT ---
PROCEDURE INFORMATION: Exam: CT Head Without Contrast Exam date and time: 08/01/2020 10:40 PM Age: 40 years old Clinical indication: Injury or trauma; Fall; Blunt trauma (contusions or hematomas) and laceration; With loss of consciousness; Loss of consciousness for 30 minutes or less; Without residual foreign body; Head, generalized; Injury details: Laceration to right side of head TECHNIQUE: Imaging protocol: Computed tomography of the head without contrast. COMPARISON: No relevant prior studies available. FINDINGS: Brain: No hemorrhage. Unremarkable white matter. No mass effect. Cerebral ventricles: No ventriculomegaly. Bones/joints: Unremarkable. No acute fracture. Paranasal sinuses: Visualized sinuses are unremarkable. No fluid levels. Mastoid air cells: Unremarkable. Soft tissues: Right frontal scalp laceration and hematoma. IMPRESSION: No intracranial hemorrhage. Thank you for allowing us to participate in the care of your patient. Dictated and Authenticated by: Arturo Khan MD 09/01/2020 11:22 AM Central Time ([place] & [place]) ROBB
--- NOTE | 2020-09-03 10:15 | CT ---
"PROCEDURE INFORMATION: Exam: CT Cervical Spine Without Contrast Exam date and time: 08/01/2020 10:40 PM Age: 40 years old Clinical indication: Injury or trauma; Fall; Fracture, traumatic injury; Second (c-2); Type of closed fracture not specified TECHNIQUE: Imaging protocol: Computed tomography images of the cervical spine without contrast. COMPARISON: No relevant prior exams. FINDINGS: Vertebrae: Acute type 2 fracture of the dens. The superior fracture fragment is anteriorly displaced by 2 mm. The ring of C1 is intact. The atlantoaxial articulation remains preserved. There is preservation of the vertebral body heights. There are tiny densities adjacent to the superior endplates of C6 and C7 which do not appear acute. The facet joints are normally aligned and articulated. There is normal alignment throughout the cervical spine. There is a moderate dextroscoliosis centered at C6. Discs/Spinal canal/Neural foramina: The intervertebral disc heights are preserved. The spinal canal is patent. There is no neural foraminal stenosis. Other bones/joints: The base of the skull is intact. The temporomandibular joints are normally articulated. Soft tissues: No large soft tissue hematoma is identified. Lungs: Mild emphysema is present in the lung apices. IMPRESSION: Acute type 2 fracture of the dens. The superior fracture fragment is anteriorly displaced by 2 mm. The spinal canal remains patent. SONJA BRUNO | Final Radiology Report CONFIDENTIALITY STATEMENT This report is intended only for use by the referring physician, and only in accordance with law. If you received this in error, call [phone]. Page 2 of 2 Thank you for allowing us to participate in the care of your patient. Dictated and Authenticated by: Derrell Prakash MD 09/02/2020 8:17 PM Central Time ([place] & [place]) ROBB"
== END 2020-08-02 10:00 ==
LOC: JD.ED 22:21
DX: S12.110A Anterior displaced Type II dens fracture, initial encounter for closed fracture (principal); S01.01XA Laceration without foreign body of scalp, initial encounter; F10.120 Alcohol abuse with intoxication, uncomplicated; Z79.899 Other long term (current) drug therapy; Z20.828 Contact with and (suspected) exposure to other viral communicable diseases; W10.8XXA Fall (on) (from) other stairs and steps, initial encounter; Y93.01 Activity, walking, marching and hiking; Y92.009 Unspecified place in unspecified non-institutional (private) residence as the place of occurrence of the external cause
CPT/HCPCS: 12002; 36415; 70450; 72125; 80053; 80307; 85025; 87635; 96374; 96375; 96376; 99285; A9270; J1170; J2060; U0002

== ENCOUNTER 2025-08-19 06:39 | Emergency (ER) | payer SELFPAY ==
[2025-08-19] MEDS ORDERED: Naloxone 0.4 MG/ML SDV IVPUSH PRN (07:08)
[2025-08-19] MEDS: Alum Hydrox/Mag Hydrox/Simeth 30 ML, Lidocaine 2% 15 ML PO STA (07:17)
[2025-08-19] MEDS: Ondansetron 4 MG/2 ML SDV IV STA (07:18)
[2025-08-19 07:23] LABS: BASOPHILS ABSOLUTE AUTO 0.1 K/mm3 (0.0-0.2); BASOPHILS PERCENT AUTO 0.5 % (0.0-1.0); EOSINOPHILS ABSOLUTE AUTO 0.4 K/mm3 (0.0-0.4); EOSINOPHILS PERCENT AUTO 3.8 % (0.0-6.0); IMMATURE GRAN ABSOLUTE AUTO 0.03 K/mm3 (0.00-0.05); IMMATURE GRAN PERCENT AUTO 0.3 % (0.0-0.4); LYMPHOCYTES ABSOLUTE AUTO 3.8 K/mm3 (1.0-4.8); LYMPHOCYTES PERCENT AUTO 39.0 % (24.0-44.0); MEAN PLATELET VOLUME 10.2 fl (9.4-12.4); MONOCYTES ABSOLUTE AUTO 0.8 K/mm3 (0.0-0.8); MONOCYTES PERCENT AUTO 8.3 % (0.0-8.0); NEUTROPHILS ABSOLUTE AUTO 4.7 K/mm3 (1.8-7.7); NEUTROPHILS PERCENT AUTO 48.1 % (41.0-71.0); NRBC ABSOLUTE 0.00 (0.00-0.02); NRBC PERCENT 0.0 % (0.0-0.2); PLATELET COUNT,PLT 330 K/mm3 (150-400); RED BLOOD CELL COUNT 5.02 M/mm3 (4.52-5.90); WHITE BLOOD CELL COUNT,WBC 9.79 K/mm3 (3.9-11.3)
[2025-08-19 07:36] LABS: A/G RATIO 1.1 (1-2); ALANINE AMINOTRANSFERASE,ALT 27.0 U/L (16-63); ASPARTATE AMNIOTRANSFERASE,AST 18.0 U/L (15-37); BILIRUBIN TOTAL 1.1 mg/dL (0.2-1.0); BLOOD UREA NITROGEN,BUN 12.0 mg/dL (7-18); CARBON DIOXIDE,CO2 26.0 mEq/L (21-32); CHLORIDE,CL 103.0 mEq/L (98-107); CREATININE 1.0 mg/dL (0.7-1.3); EST CRCL DRUG DOSING (CG) 89.05 mL/min; ESTIMATED GFR 96.0 mL/min (>60); GLUCOSE RANDOM 107.0 mg/dL (70-99); POTASSIUM,K 3.9 mEq/L (3.5-5.1); PROTEIN TOTAL,TP 7.7 g/dl (6.4-8.2); SODIUM,NA 140.0 mEq/L (136-145); TROPONIN I HIGH SENSITIVITY 4.0 pg/mL (<=76)
[2025-08-19 10:23] VITALS: BP 127/94; PULSE 58
== END 2025-08-19 08:45 | disposition home or self-care (01) ==
LOC: JD.ED 06:39
DX: K29.70 Gastritis, unspecified, without bleeding (principal); Z79.899 Other long term (current) drug therapy
CPT/HCPCS: 36415; 80053; 83690; 84484; 85025; 93005; 96361; 96374; 96375; 99285; J1171; J1308; J2405; J2470; J3490; J7030; 93010; 99284; A9270-GY